=== PATIENT | female | born 1950 | race Caucasian/White ===

== ENCOUNTER 2018-04-21 06:58 | Emergency (ER) | payer MEDICARE ==
[~2018-04-21] VITALS: Ht 165.1 cm; Wt 98.6 kg
[2018-04-21 07:05] VITALS: Ht 165.1 cm; Wt 98.6 kg
[2018-04-21] MEDS ORDERED: BAYER CHEWABLE81 MG PO (07:06)
[2018-04-21] MEDS ORDERED: AMITRIPTYLINE H50 MG PO (07:06)
[2018-04-21] MEDS ORDERED: CRESTOR10 MG PO (07:07)
[2018-04-21] MEDS ORDERED: PLAVIX75 MG PO (07:07)
[2018-04-21] MEDS ORDERED: LASIX 40 M40 MG/5 ML PO (07:07)
[2018-04-21] MEDS ORDERED: GARLIC PO (07:08)
[2018-04-21] MEDS ORDERED: HUMULIN 70100 UNIT/1 SC (07:09)
[2018-04-21] MEDS ORDERED: GLIPIZIDE10 MG PO (07:09)
[2018-04-21] MEDS ORDERED: HUMULIN N100 U/ML SC (07:10)
[2018-04-21] MEDS ORDERED: ISOSORBIDE MONO30 M1 PO (07:10)
[2018-04-21] MEDS ORDERED: GLUCOPHAGE500 MG PO (07:11)
[2018-04-21] MEDS ORDERED: METOPROLOL TART50 MG PO (07:11)
[2018-04-21] MEDS ORDERED: OMEPRAZOLE20 M1 PO (07:11)
[2018-04-21] MEDS ORDERED: PRINIVIL20 MG PO (07:11)
[2018-04-21] MEDS ORDERED: VITAMIN D2000 UNIT PO (07:12)
[2018-04-21] MEDS ORDERED: ALDACTONE25 MG PO (07:12)
[2018-04-21] MEDS ORDERED: VITAMIN C WIT1000 MG PO (07:12)
[2018-04-21 07:27] LABS: BASOPHILS 0.6 % (0-2); HEMATOCRIT 41.2 % (36.0-48.0); HEMOGLOBIN 13.4 g/dL (12-16); IMMATURE GRANULOCYTES 0.4 % (0-5); LYMPHOCYTES 12.1 % (15-50); MCH 30.5 pg (26.0-34.0); MCHC 32.5 g/dL (31.0-37.0); MCV 93.6 fL (80.0-100.0); MEAN PLATELET VOLUME 10.6 fL (7.4-10.4); MONOCYTES 7.1 % (2-11); NEUTROPHILS 78.8 % (40-80); PLATELET COUNT 167 10x3/uL (130-400); RDW 13.4 % (11.5-14.5); WBC 7.2 10x3/uL (4.8-10.8)
[2018-04-21 07:41] LABS: ALBUMIN 2.9 g/dL (3.4-5.0); ANION GAP 18.2 mmol/L (8-16); BILIRUBIN - TOTAL 0.17 mg/dL (0.2-1.3); CALCIUM 7.9 mg/dL (8.5-10.1); POTASSIUM - SERUM 4.2 mmol/L (3.5-5.1); PROTEIN - SERUM 6.7 g/dL (6.4-8.2)
[2018-04-21 08:07] LABS: APPEARANCE CLEAR (CLEAR); BILIRUBIN NEGATIVE (NEGATIVE); COLOR YELLOW (YELLOW); GLUCOSE 250 mg/dL (NEGATIVE); KETONE NEGATIVE (NEGATIVE); NITRITE NEGATIVE (NEGATIVE); PROTEIN 1+ mg/dL (NEGATIVE); SPECIFIC GRAVITY 1.015 (1.005-1.020); WHITE CELLS - URINE OCC /hpf (0-5)
[2018-04-21 08:08] LABS: BACTERIA FEW /hpf (NONE SEEN); EPITHELIAL CELLS 0-5 /hpf (0-5); MUCUS <1+ /lpf (NONE SEEN); RED CELLS - URINE OCC /hpf (0-5)
[2018-04-21 09:44] VITALS: BP 138/66
== END 2018-04-21 09:46 | disposition home or self-care (01) ==
LOC: D.ER 06:58
PROVIDERS: Emergency Medicine
DX: E11.649 Type 2 diabetes mellitus with hypoglycemia without coma (principal); I10 Essential (primary) hypertension; I50.9 Heart failure, unspecified